=== PATIENT | male | born 1945 | race Caucasian/White ===

== ENCOUNTER 2016-11-03 06:33 | Day surgery (SDC) | payer MEDICARE, OTHER ==
[2016-10-29 11:20] LABS: HEMATOCRIT 36.8 % (40.0-51.0); HEMOGLOBIN 12.6 g/dL (13.6-17.8)
[2016-10-29 11:34] LABS: BUN (BLOOD UREA NITROGEN) 22 MG/DL (6-23); CALCIUM, SERUM 8.3 MG/DL (8.5-10.4); CHLORIDE, SERUM 102 MMOL/L (96-112); CO2 (CARBON DIOXIDE) 29 MMOL/L (24-34); CREATININE 1.39 MG/DL (0.70-1.30); GFR AFRICAN AMERICAN 58 ML/MIN (>=60); GFR NON AFRICAN AMERICAN 50 ML/MIN (>=60); GLUCOSE, SERUM 73 MG/DL (60-99); POTASSIUM, SERUM 4.4 MMOL/L (3.5-5.3); SODIUM, SERUM 139 MMOL/L (135-148)
--- NOTE | ~2016-11-03 | OP ---
Record Of Operation [facility] [address] [place]. [address] NAME: MARY KAY UGIDO : 41 [place] [facility] [place] [id number] AGE: 71 ADM/REG DATE : 11/03/16 MR#: [id number] REPORT SERV DATE: 11/03/16 DICTATED BY: SONDRA SALINAS DATE: 11/03/16 REPORT STATUS : Draft TRANSCRIBED BY: MODL DATE: 11/03/16 DATE OF PROCEDURE: 11/03/2016 PREOPERATIVE DIAGNOSIS: Right acromioclavicular arthritis. POSTOPERATIVE DIAGNOSIS: Right acromioclavicular arthritis. PROCEDURE: Right mini open acromioclavicular resection. SURGEON: Sondra Salinas M.D. COMPLICATIONS: None. ANESTHESIA: General endotracheal with regional block per Anesthesia. INDICATIONS: This 71-year-old male is well known to me. He has done well from a reverse shoulder arthroplasty. He presented subsequently with AC pain, which responded well to an injection in the Outpatient Clinic. He wished to proceed with AC resection after discussion of risks, benefits, alternatives. DESCRIPTION OF PROCEDURE: The patient was induced in supine position. Right upper extremity was prepped and draped in a standard surgical fashion. He was taken to the beach-chair position with care to maintain the cervical lordosis. Time-out protocol was enforced. Ancef was administered. A saber incision was made over the distal clavicle. Skin flaps were developed with a Bovie. Deltotrapezial fascia was incised and subperiosteally dissected off the distal clavicle. 8 mm of the distal clavicle was then incised with a saw. Osteotome and rongeur were used to remove the distal end of the clavicle. There were some encloses of the joint. We debrided that copiously with a shaver. The wound was irrigated copiously. We closed the ligaments and repaired the ligaments with #1 Vicryl, and then oversewed the deltotrapezial fascia into position. The wound was closed in layers. The patient tolerated the procedure well and was sent to PACU in stable condition. POSTOPERATIVE PLAN: Elbow range of motion, pendulums, sling for comfort. BSS/MODL Sondra Salinas M.D. / [id number] CC: Record Of Operation [facility] [address] [place] [address] NAME: MARY KAY GUIDO : 41 [place] [facility] [place] [id number] AGE: 71 ADM/REG DATE : 11/03/16 MR#: [id number] REPORT SERV DATE: 11/03/16 DICTATED BY: SONDRA SALINAS DATE: 11/03/16 REPORT STATUS : Draft TRANSCRIBED BY: MODL DATE: 11/03/16 Ryan Franco MD
[~2016-11-03 06:33] MED LIST: ACTOS15 PO; ADVAIR PO; ADVAIR115P INH; ADVAIR250 INH; ASAB PO; ATV.5 PO; AVELOX400 PO; CARD120 PO; CARDCD120 PO; CARTIA XT180 MG/24 PO; CELEXA20 PO; CELEXA40 MG PO; CITALOPRAM; CLARIT10 PO; CODEINE/GUAI1 ML PO; COMBIVENT RESPIM4 GM INH; COREG3 PO; DIABET2.5 PO; DILT-XR180 MG PO; DILTIAZEM 120 MG PO; DOVONCR60 TOP; DYAZIDE1 CAP PO; ENABLEX15 PO; ENABLEX7.5 PO; FIOR PO; FIORICET OR; FLUOCINONIDE0.051 EX; HUMALOG SC; HUMALOGPEN SC; HUMIRA PEN SC; HUMULIN R1 ML SC; HYT5 PO; IMDUR120 PO; IMDUR30 PO; IMDUR60 PO; KAPIDEX30 MG; L20 PO; LANTUS SC; LANTUSCART SC; LOP25 PO; LOP50 PO; LORTAB 5 PO; LORTAB10 PO; LYRICA75 PO; MAX25 PO; METHOC500B PO; MEVACOR40 MG PO; MSCONTIN PO; MULTIPLE VIT PO; MULTIVIT/MIN PO; MYRBETRIQ50 MG PO; NEUR100 PO; NEUR300 PO; NITROII5C TOP; NITROQUICK0.4 MG SL; NORCO1 TAB PO; NTG150 SL; PERCOCET1 TA2 PO; PLAVIX PO; PR25 PO; PRAVACHOL40 MG PO; PREV30 PO; PRILO PO; PROAIR HFA INH; PROSCAR5 PO; PROTONIX PO; PROVHFA INH; RAN500 PO; RANEXA1000 MG PO; RAPAFLO PO; SANCTURA20 MG PO; SINGULAIR1 PO; SPIRIVA INH; TEARS NATURA OPH; VANOS 0.1% EX; ZANAFLEX2 MG PO; ZOL50 PO; [UNRECOGNIZED DRUG - OTHER] OR
== END 2016-11-03 15:50 | disposition home or self-care (01) ==
LOC: SDC 06:33
PROVIDERS: Orthopaedic Surgery Sports Medicine
PROC: 0RBG0ZZ Excision of Right Acromioclavicular Joint, Open Approach (ICD-10-PCS; principal; 2016-11-03 08:30)
DX: M19.011 Primary osteoarthritis, right shoulder (principal); E11.9 Type 2 diabetes mellitus without complications; Z79.4 Long term (current) use of insulin; I25.2 Old myocardial infarction; J44.9 Chronic obstructive pulmonary disease, unspecified; I20.9 Angina pectoris, unspecified; L40.50 Arthropathic psoriasis, unspecified; Z91.041 Radiographic dye allergy status
CPT/HCPCS: 80048; 82962; 85014; 85018; 88304; 88311; 93005; A9270-GY; J0690; J2250; J2405; J2710; J2795; J3010